=== PATIENT | female | born 1950 | race Two or more races ===

== ENCOUNTER 2025-06-11 07:42 | Inpatient (IN) | payer OTHER ==
[~2025-06-11] VITALS: Ht 152.4 cm; Wt 68.9 kg
[2025-06-11] MEDS ORDERED: AVAPRO150 MG (08:05)
[2025-06-11] MEDS ORDERED: TRIJARDY XR 121 EACH (08:05)
[2025-06-11] MEDS ORDERED: IRBESARTAN-HCT1 EACH (08:06)
[2025-06-11] MEDS ORDERED: ATORVASTATIN CA40 MG (08:06)
[2025-06-11] MEDS ORDERED: FENOFIBRATE150 MG (08:06)
[2025-06-11] MEDS ORDERED: GLIMEPIRIDE1 M1 (08:07)
[2025-06-11] MEDS ORDERED: ACETAMINOPHEN 500 MG GEL..CAP PO ONE ×3 (10:30→19:09)
[2025-06-11] MEDS ORDERED: INSULIN LISPRO 1,000 UNIT/10 ML UNITS SUBCUTANEO PRN (18:00)
[2025-06-11] MEDS ORDERED: DEXTROSE 50 % IN WATER 0.5 G/ML DISP.SYRIN IV PRN (18:00)
[2025-06-11] MEDS ORDERED: FAMOTIDINE/PF 20 MG in 0.9 % SODIUM CHLORIDE 100 ML IV SCH (18:07)
[2025-06-11] MEDS ORDERED: MORPHINE SULFATE 2 MG/ML SYRINGE IV PRN (18:15)
[2025-06-11] MEDS ORDERED: 0.9 % SODIUM CHLORIDE 1,000 ML IV SCH (18:15)
[2025-06-11] MEDS ORDERED: FAMOTIDINE/PF 20 MG/2 ML VIAL ONE (19:09)
[2025-06-11] MEDS ORDERED: ACETAMINOPHEN 500 MG GEL..CAP PO SCH (20:00)
[2025-06-11 20:48] VITALS: BP 155/86; O2SAT 96
[2025-06-12 00:32] VITALS: BP 130/67; O2SAT 94
[2025-06-12 04:21] LABS: BASO % 0.5 % (0.1-1.2); EOS # 0.08 (0.04-0.54); EOS % 1.2 % (0.7-7.0); LYMPH # 1.98 (1.18-3.74); LYMPH % 30.7 % (19.3-53.1); MEAN PLATELET VOLUME 10.20 fl (9.4-12.4); MONO # 0.56 (0.24-0.82); MONO % 8.7 % (4.7-12.5); NEUT # 3.80 (1.56-6.13); NEUT % 58.7 % (34.0-71.1); RED CELL DISTRIBUTION WIDTH 15.5 % (11.6-14.4)
[2025-06-12 04:45] LABS: INR 1.02
[2025-06-12 04:58] LABS: BUN CREA RATIO 35.0 (7.0-25.0); CREATININE SERUM 0.46 mg/dL (0.55-1.02); GFR 133.53; GLUCOSE FASTING 121.0 mg/dL (65-100); OSMOLALITY SERUM 287.0 MOSM/KG (275-295)
[2025-06-12 08:00] VITALS: BP 142/85; O2SAT 95
[2025-06-12] MEDS ORDERED: HYDROCHLOROTHIAZIDE 12.5 MG CAPSULE PO SCH (09:00)
[2025-06-12] MEDS ORDERED: IRBESARTAN 150 MG TABLET PO SCH (09:00)
[2025-06-12] MEDS ORDERED: CEFAZOLIN SODIUM 1,000 MG VIAL IV ONE (16:15)
[2025-06-12] MEDS ORDERED: ISOPROPYL ALCOHOL 30 ML OUNCE TOP ONE (16:15)
[2025-06-12] MEDS ORDERED: CELECOXIB 200 MG CAPSULE PO SCH (17:26)
[2025-06-12] MEDS ORDERED: PANTOPRAZOLE SODIUM 40 MG TABLET.DR PO SCH (17:26)
[2025-06-12] MEDS ORDERED: SODIUM CHLORIDE 0.45 % 1,000 ML IV SCH (17:30)
[2025-06-12] MEDS ORDERED: ONDANSETRON 4 MG TAB.RAPDIS PO PRN (17:30)
[2025-06-12] MEDS ORDERED: PROMETHAZINE HCL 50 MG/ML AMPUL IM PRN (17:30)
[2025-06-12] MEDS ORDERED: TRAMADOL HCL 50 MG TABLET PO PRN (17:30)
[2025-06-12] MEDS ORDERED: ONDANSETRON HCL 2 MG/ML VIAL IV PRN (17:30)
[2025-06-12] MEDS ORDERED: ONDANSETRON HCL 2 MG/ML VIAL IV ONE (17:40)
[2025-06-12] MEDS ORDERED: PROMETHAZINE HCL 50 MG/ML AMPUL IV ONE (17:45)
[2025-06-12] MEDS ORDERED: SUGAMMADEX SODIUM 200 MG/2 ML VIAL IV ONE (17:45)
[2025-06-12] MEDS ORDERED: DEXTROSE 50 % IN WATER 0.5 G/ML DISP.SYRIN IV PRN (19:00)
[2025-06-12] MEDS ORDERED: INSULIN LISPRO 1,000 UNIT/10 ML UNITS SUBCUTANEO PRN (19:00)
[2025-06-12] MEDS ORDERED: KETOROLAC TROMETHAMINE 10 MG TABLET PO SCH (21:00)
[2025-06-13 00:17] VITALS: BP 108/67; O2SAT 98
[2025-06-13] MEDS ORDERED: CEFAZOLIN SODIUM 1,000 MG VIAL IV SCH (01:00)
[2025-06-13 07:12] LABS: BASO % 0.5 % (0.1-1.2); EOS # 0.04 (0.04-0.54); EOS % 0.7 % (0.7-7.0); LYMPH # 1.68 (1.18-3.74); LYMPH % 27.8 % (19.3-53.1); MEAN PLATELET VOLUME 11.00 fl (9.4-12.4); MONO # 0.53 (0.24-0.82); MONO % 8.8 % (4.7-12.5); NEUT # 3.74 (1.56-6.13); NEUT % 61.9 % (34.0-71.1); RED CELL DISTRIBUTION WIDTH 15.4 % (11.6-14.4)
[2025-06-13 07:54] LABS: ALT/SGPT 19.0 U/L (12-78); AST/SGOT 18.0 U/L (15-37); BILIRUBIN TOTAL 0.6 mg/dL (0.3-1.2); BUN CREA RATIO 32.0 (7.0-25.0); CREATININE SERUM 0.44 mg/dL (0.55-1.02); GFR 140.56; GLOBULINA 3.0 G/DL (2.4-3.5); GLUCOSE FASTING 89.0 mg/dL (65-100); OSMOLALITY SERUM 283.0 MOSM/KG (275-295)
[2025-06-13 08:17] VITALS: BP 150/65; O2SAT 93
[2025-06-13] MEDS ORDERED: RIVAROXABAN 10 MG TAB PO SCH (09:00)
[2025-06-14] MEDS ORDERED: SENNA/DOCUSATE SODIUM 1 TAB TABLET PO SCH (09:00)
== END 2025-06-13 14:51 | disposition home or self-care (01) | DRG 493 ==
LOC: ER 07:43 → SURH 18:24 → O/R 18:24 → SURH 19:09
PROVIDERS: Orthopaedic Surgery; ADMIT Internal Medicine; ATTEND Internal Medicine
PROC: 0PSC36Z Reposition Right Humeral Head with Intramedullary Internal Fixation Device, Percutaneous Approach (ICD-10-PCS; 2025-06-12)
PROC: 0LQ10ZZ Repair Right Shoulder Tendon, Open Approach (ICD-10-PCS; 2025-06-12)
PROC: 0RQG0ZZ Repair Right Acromioclavicular Joint, Open Approach (ICD-10-PCS; 2025-06-12)
PROC: 0PB90ZZ Excision of Right Clavicle, Open Approach (ICD-10-PCS; 2025-06-12)
PROC: 0PSF36Z Reposition Right Humeral Shaft with Intramedullary Internal Fixation Device, Percutaneous Approach (ICD-10-PCS; principal; 2025-06-12 12:30)
DX: S42.291A Other displaced fracture of upper end of right humerus, initial encounter for closed fracture (principal); S42.331A Displaced oblique fracture of shaft of humerus, right arm, initial encounter for closed fracture; M75.101 Unspecified rotator cuff tear or rupture of right shoulder, not specified as traumatic; M19.011 Primary osteoarthritis, right shoulder; W19.XXXA Unspecified fall, initial encounter; E11.9 Type 2 diabetes mellitus without complications; I10 Essential (primary) hypertension; Y92.010 Kitchen of single-family (private) house as the place of occurrence of the external cause; Z79.84 Long term (current) use of oral hypoglycemic drugs